=== PATIENT | male | born 1995 | race Asian ===

== ENCOUNTER 2018-06-05 03:49 | Emergency (ER) | payer OTHER ==
[~2018-06-05] VITALS: Ht 167.6 cm; Wt 56.9 kg
[~2018-06-05 03:49] MED LIST: SENN-8 PO
[2018-06-05 03:55] VITALS: Ht 167.6 cm; Wt 56.9 kg
[2018-06-05] MEDS ORDERED: morphine 4 MG/ML VIAL IV STA (05:33)
[2018-06-05] MEDS ORDERED: ONDANSETRON 4 MG INJ IV STA (05:33)
[2018-06-05] MEDS ORDERED: SOD CHLORIDE 0.9% 1,000 ML IV STA ×2 (05:33→06:34)
--- NOTE | 2018-06-05 07:35 | ERD ---
ER Documentation Chief Complaint Chief Complaint vomiting/idigestion since 2199 HPI 23-year-old male with history of pancreatitis presents with history of left- sided abdominal pain no vomiting since 8 PM last night. States that it started after he ate something and then he took a home remedy from [place] and he said it made it much worse and started vomiting more so. Describes the vomitus is clear and yellow, nonbloody nonbilious. Denies recent drinking, fevers, chills, diarrhea, constipation. ROS All systems reviewed and are negative except as per history of present illness. Medications Home Meds Active Scripts Hydrocodone/Acetaminophen ([place] 5-325 Tablet) 1 Each Tablet, 1 TAB PO Q6H PRN for PAIN, #10 TAB Prov:DEMETRIS WALKER 06/05/18 Ondansetron (Ondansetron Odt) 8 Mg Tab.rapdis, 8 MG PO Q6H PRN for NAUSEA AND/OR VOMITING, #20 TAB Prov:DEMETRIS WALKER 06/05/18 Sennosides/Docusate Sodium* (Senna-S*) 1 Tab Tablet, 1 TAB PO BID, #40 TAB Prov:FRANSISCA MANZO MD 03/24/14 Allergies Allergies: Coded Allergies: No Known Allergy (Unverified , 03/21/14) PMhx/Soc History of Surgery: Yes (tonsillectomy 1999) Anesthesia Reaction: No Hx Neurological Disorder: No Hx Respiratory Disorders: No Hx Cardiac Disorders: No Hx Psychiatric Problems: No Hx Miscellaneous Medical Probl: No Hx Alcohol Use: No Hx Substance Use: Yes Hx Tobacco Use: Yes (smokes marijuana ) Smoking Status: Current every day smoker FmHx Family History: No diabetes, No coronary disease, No other Physical Exam Vitals Vital Signs Date Temp Pulse Resp B/P (MAP) Pulse Ox O2 O2 Flow FiO2 Time Delivery Rate 06/05/18 80 17 102/69 100 Room Air 07:56 (80) 06/05/18 99.1 67 18 137/66 97 03:55 (89) Physical Exam Const: No acute distress Head: Atraumatic Eyes: Normal Conjunctiva ENT: Normal External Ears, Nose and Mouth. Neck: Full range of motion. No meningismus. Resp: Clear to auscultation bilaterally Cardio: Regular rate and rhythm, no murmurs Abd: Tenderness to palpation in the left lower quadrant. Negative Negro's. Negative McBurney's.. Normal bowel sounds Skin: No petechiae or rashes Back: No midline or flank tenderness Ext: No cyanosis, or edema Neur: Awake and alert Psych: Normal Mood and Affect Result Diagram: 06/05/18 0543 06/05/18 0543 Results 24 hrs Laboratory Tests Test 06/05/18 05:43 White Blood Count 14.3 10^3/ul Red Blood Count 5.67 10^6/ul Hemoglobin 17.0 g/dl Hematocrit 47.6 % Mean Corpuscular Volume 84.0 fl Mean Corpuscular Hemoglobin 30.0 pg Mean Corpuscular Hemoglobin Concent 35.7 g/dl Red Cell Distribution Width 12.3 % Platelet Count 244 10^3/UL Mean Platelet Volume 9.9 fl Immature Granulocytes % 0.600 % Neutrophils % 87.6 % Lymphocytes % 7.2 % Monocytes % 4.4 % Eosinophils % 0.0 % Basophils % 0.2 % Nucleated Red Blood Cells % 0.0 /100WBC Immature Granulocytes # 0.080 10^3/ul Neutrophils # 12.5 10^3/ul Lymphocytes # 1.0 10^3/ul Monocytes # 0.6 10^3/ul Eosinophils # 0.0 10^3/ul Basophils # 0.0 10^3/ul Nucleated Red Blood Cells # 0.0 10^3/ul Urine Color YELLOW Urine Clarity CLEAR Urine pH 5.0 Urine Specific [place] 1.028 Urine Ketones 2+ mg/dL Urine Nitrite NEGATIVE mg/dL Urine Bilirubin NEGATIVE mg/dL Urine Urobilinogen NEGATIVE mg/dL Urine Leukocyte Esterase NEGATIVE Gracy/ul Urine Microscopic RBC 1 /HPF Urine Microscopic WBC 2 /HPF Urine Mucus FEW /HPF Urine Hemoglobin NEGATIVE mg/dL Urine Glucose NEGATIVE mg/dL Urine Total Protein 1+ mg/dl Sodium Level 145 mmol/L Potassium Level 4.7 mmol/L Chloride Level 98 mmol/L Carbon Dioxide Level 27 mmol/L Anion Gap 20 Blood Urea Nitrogen 19 mg/dl Creatinine 1.06 mg/dl Est Glomerular Filtrat Rate mL/min > 60 mL/min Glucose Level 77 mg/dl Calcium Level 10.3 mg/dl Total Bilirubin 1.3 mg/dl Direct Bilirubin 0.00 mg/dl Indirect Bilirubin 1.3 mg/dl Aspartate Amino Transf (AST/SGOT) 48 IU/L Alanine Aminotransferase (ALT/SGPT) 32 IU/L Alkaline Phosphatase 65 IU/L Total Protein 9.1 g/dl Albumin 5.4 g/dl Globulin 3.70 g/dl Albumin/Globulin Ratio 1.45 Lipase 223 U/L Current Medications Medications Dose Sig/Jazmín Start Time Status Last (Trade) Ordered Route PRN Stop Time Admin Dose Reason Admin Sodium 1,000 ml @ Q1H STAT 06/05/18 DC 06/05/18 Chloride 1,000 mls/hr IV 05:33 05:45 06/05/18 06:32 Morphine 4 mg ONCE STAT 06/05/18 DC 06/05/18 Sulfate IV 05:33 05:45 (morphine) 06/05/18 05:34 Ondansetron 4 mg ONCE STAT 06/05/18 DC 06/05/18 HCl (Zofran IV 05:33 05:45 Inj) 06/05/18 05:34 Sodium 1,000 ml @ Q1H STAT 06/05/18 DC 06/05/18 Chloride 1,000 mls/hr IV 06:34 06:51 06/05/18 07:33 Procedures/MDM EKG: Rate/Rhythm: Normal Sinus Rhythm QRS, ST, T-waves: No changes consistent w/ acute ischemia Impression: No evidence of ischemia or arrhythmia CBC, CMP, lipase performed. CBC showed moderate white count the lipase was within normal limits. 2 L IV fluids given. Morphine given. Zofran given. P.o. challenge passed. 23-year-old male with history of pancreatitis presents with history of left- sided abdominal pain no vomiting since 8 PM last night. States that it started after he ate something and then he took a home remedy [place] and he said it made it much worse and started vomiting more so. Describes the vomitus is clear and yellow, nonbloody nonbilious. Denies recent drinking, fevers, chills, diarrhea, constipation. I have low suspicion for appendicitis due to patient history and exam, including normal abdominal exam, lack of McBurney's point tenderness . I have low suspicion for volvulus or obstruction due patient history and exam, including lack of history of biliary emesis and normal physical exam. I have low suspicion of invasive diarrhea due to patient history and exam, including lack of hematochezia. I have low suspicion for dehydration due to moist and pink mucous membranes, normal labs patients non lethargic state, passing PO challenge test, and normal cap refill. I have low suspicion of DKA based on labs, patient history and exam, . I have low suspicion for adrenal crisis, AAA, mesenteric ischemia, pyelonephritis, cholecystitis, aortic dissection, ectopic, RI, pneumonia, acute pancreatitis, PID, or other emergent causes based on patient history and exam. Most likely diagnosis is gastroenteritis, possibly secondary to something he ingested. Based on these findings I do not feel that additional labs, imaging. or antibiotics are necessary. After passing PO challenge, patient was discharged with rx for zofran, and norco. Patient was discharged with strict ER precautions. Patient was recommended to return to ER in 8 hours for follow-up exam. All questions answered at discharge. Departure Diagnosis: Primary Impression: Gastroenteritis Condition: Stable DEMETRIS WALKER Jun 05, 2018 07:30
[2018-06-05] MEDS ORDERED: ONDA8TAB14 PO (07:41)
[2018-06-05] MEDS ORDERED: HYDR-4011 PO (07:41)
[2018-06-05 07:56] VITALS: BP 102/69; PULSE 80; RESP 17
== END 2018-06-05 08:30 | disposition home or self-care (01) ==
LOC: FTE 03:49
DX: K52.9 Noninfective gastroenteritis and colitis, unspecified (principal); F17.210 Nicotine dependence, cigarettes, uncomplicated
CPT/HCPCS: 36415; 80053; 81001; 83690; 85025; 93005; 96374; 96375; 99284; J2270; J2405; J7030